=== PATIENT | female | born 1985 | race Hispanic/Latino ===

== ENCOUNTER 2017-05-02 23:50 | Emergency (ER) | payer OTHER ==
[2017-05-03 00:06] VITALS: BP 154/79; PULSE 85; RESP 16; TEMP 98.4; O2SAT 100
--- NOTE | 2017-05-03 00:35 | ED PDOC ---
HPI: General Adult Time Seen by Provider: 05/03/17 00:08 Chief Complaint (Nursing): Weakness/Neurological Deficit Chief Complaint (Provider): Left Hand and Facial Numbness History Per: Patient History/Exam Limitations: no limitations Onset/Duration Of Symptoms: Mins Current Symptoms Are (Timing): Gone Now Location: Left hand, Left face Similar Symptoms Previously: Similar episode 1 year ago Additional Complaint(s): Patient is a 31 year old female with no past medical history who presents to the ED for evaluation of left hand and facial numbness which began 30 minutes ago, lasting approximately 5 minutes. 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 She reports that she has been anxious during this due to loss of past pregnancies. She reports that she was home and developed transient visual disturbance in left eye which resolved after a few seconds. Subsequent to that, she had a transient episode of left sided facial and left hand numbness which also resolved after a few minutes. She notes 1 prior episode of similar nature 1 year ago and was evaluated in the ER and by a neurologist and was told that she was suffering from anxiety. On arrival to the ED the patient is asymptomatic. She denies any associated chest pain, shortness of breath, headache, fever, cough, vomiting, or diarrhea. She endorses nausea but notes that she has been nauseous throughout this . Negative surgical, medical , and social history. Past Medical History Reviewed: Historical Data, Nursing Documentation, Vital Signs Vital Signs: Last Vital Signs Temp 98.4 F 05/03/17 00:02 Pulse 85 05/03/17 00:02 Resp 16 05/03/17 00:02 BP 154/79 H 05/03/17 00:02 Pulse Ox 100 05/03/17 00:41 - Medical History PMH: Anxiety - Surgical History Surgical History: No Surg Hx - Family History Family History: States: Unknown Family Hx - Social History Current smoker - smoking cessation education provided: No Ex-Smoker (has not smoked in the last 12 months): No Alcohol: None Drugs: Denies - Immunization History Hx Tetanus Toxoid Vaccination: No Hx Influenza Vaccination: No Hx Pneumococcal Vaccination: No - Home Medications Home Medications: Ambulatory Orders Medication Instructions Recorded Acetaminophen/Butalbital/Caf 1 tab PO TID PRN #15 tab 05/16/14 [Fioricet 325 mg-50 mg-40 mg] - Allergies Allergies/Adverse Reactions: Allergies Allergy/AdvReac Type Severity Reaction Status Date / Time No Known Allergies Allergy Verified 03/20/16 21:36 Review of Systems Constitutional: Negative for: Fever Eyes: Positive for: Vision Change Cardiovascular: Negative for: Chest Pain Respiratory: Negative for: Cough, Shortness of Breath Gastrointestinal: Positive for: Nausea. Negative for: Vomiting, Diarrhea Neurological: Positive for: Numbness Physical Exam - Physical Exam Appears: Positive for: Non-toxic, No Acute Distress Head Exam: Positive for: ATRAUMATIC, NORMOCEPHALIC Skin: Positive for: Normal Color, Warm, Dry Eye Exam: Positive for: Normal appearance, EOMI, PERRL Neck: Positive for: Normal, Painless ROM, Supple Cardiovascular/Chest: Positive for: Regular Rate, Rhythm. Negative for: Murmur Respiratory: Positive for: Normal Breath Sounds. Negative for: Respiratory Distress Gastrointestinal/Abdominal: Positive for: Normal Exam, Soft. Negative for: Tenderness Back: Positive for: Normal Inspection. Negative for: L CVA Tenderness, R CVA Tenderness, Other (midline tenderness) Extremity: Positive for: Normal ROM. Negative for: Pedal Edema, Deformity Neurologic/Psych: Positive for: Alert, restorative aide II-XII, Oriented. Negative for: Motor/Sensory Deficits, Cerebellar Tests, Facial Droop - ECG O2 Sat by Pulse Oximetry: 100 Medical Decision Making Medical Decision Making: Impression: Episodic parasthesias and visual disturbance that has self resolved Plan: Provider discussed with the patient the benign nature of the physical exam findings not justifying a CT scan. although she was offered the CT scan which she herself declined. She reports that she will return to the ED if symptoms return or worsen. Return instructions provided. Scribe Attestation: Documented by Freddy New acting as a scribe for Goldy Ashley MD. Scribe Attestation: All medical record entries made by the Scribe were at my direction and personally dictated by me. I have reviewed the chart and agree that the record accurately reflects my personal performance of the history, physical exam, medical decision making, and the department course for this patient. I have also personally directed, reviewed, and agree with the discharge instructions and disposition. Disposition - Clinical Impression Clinical Impression: Paresthesia, Anxiety - Disposition Disposition Time: 12:30 Condition: STABLE Instructions: Paresthesia (ED), Anxiety (ED) Forms: [employer] (Khmer)
== END 2017-05-03 00:32 | disposition home or self-care (01) ==
LOC: H.ER 23:50
DX: O99.341 Other mental disorders complicating pregnancy, first trimester (principal); F41.9 Anxiety disorder, unspecified; O26.891 Other specified pregnancy related conditions, first trimester; R20.9 Unspecified disturbances of skin sensation; Z3A.12 12 weeks gestation of pregnancy